=== PATIENT | female | born 1930 | race Caucasian/White ===

== ENCOUNTER 2016-08-25 09:29 | Day surgery (SDC) | payer MEDICARE, OTHER ==
[2016-08-25] VITALS (7 sets, daily range): BP systolic 158–185; BP diastolic 78–98; PULSE 76–87; RESP 16–20; O2SAT 95–98
[~2016-08-25] VITALS: Ht 167.6 cm; Wt 61.7 kg
[~2016-08-25 09:29] MED LIST: ASPI325T32 PO; BUPR300T52 PO; Bupivacaine Liposome 1.3% 20 mL Inj INFILTRATE ONE; CeFAZolin Inj 2 GM in IV Premix 1 EACH IV ONE; GABA-502 PO; LOSA100T29 PO; Lactated Ringer's 1,000 ML IV ONE; OMEP20TA86 PO; PANT500T PO; VIT1TABL83 PO; Vancomycin Inj 1,000 MG in IV Premix 1 EACH IV ONE; calcium; magnesium; vitamin d3
[2016-08-25] MEDS ORDERED: Ondansetron 2 mg/mL 2 mL Inj ONE (09:30)
[2016-08-25] MEDS ORDERED: fentaNYL-PF 50 mCg/mL 2 mL Inj ONE (09:30)
[2016-08-25] MEDS ORDERED: Dexamethasone 4 mg/mL Inj ONE (09:30)
[2016-08-25] MEDS ORDERED: Propofol 10,000 mCg/mL 20 mL Inj ONE (09:30)
--- NOTE | 2016-08-25 11:04 | PCM.HPANE ---
Patient Data Surgeon Admitting Provider: Attending Provider:Michael Evans MD Primary Care Physician:Antonio Sears Other Provider:Neelam Nuñez Anesthesia Reason for Visit Left Knee Arthritis Ht/WT & BMI Height (Feet): 5 Height (Inches): 6 Weight (Kilograms): 61.7 Body Mass Index 21.00 Allergies Coded Allergies: amlodipine (Verified Allergy, Intermediate, HEADACHE, 11/07/13) Sulfa (Sulfonamide Antibiotics) (Verified Allergy, Unknown, 11/07/13) monosodium glutamate (Verified Allergy, Unknown, 11/07/13) olanzapine (Verified Allergy, Unknown, UNKNOWN, 11/07/13) sulfite (Verified Allergy, Unknown, 11/07/13) morphine (Verified Adverse Reaction, Intermediate, N/V, 04/29/12) Uncoded Allergies: LIDOCAINE PATCH (Allergy, Intermediate, nausea, 11/07/13) Past Anesthesia History Anesthesia History: Denies:: Abnormal Airway, Anesthesia Reactions, Difficult Intubation, Fam Anesthesia Reaction, Fam Malignant Hypertherm, Malignant Hyperthermia Diabetes History Hx Diabetes?: No MRSA MRSA: No Medications Blood Thinner: Aspirin Hypertension Medication: Yes Home Meds Incl Beta Gil: No Reported Medications [vitamin d3] No Conflict CheckUnknown Dose DAILY 08/21/16 Vit B Comp/C/FA/Iron/Vit E (Vitamin B Complex Tablet)1 Each Tablet1 Each PO DAILY 08/21/16 Pantothenic Acid 500 Mg Swwaoy129 Mg PO DAILY 08/21/16 Omeprazole 20 Mg Tablet.dr20 Mg PO DAILY 08/21/16 [magnesium] No Conflict Ewmac574-309 Mg DAILY 08/21/16 Losartan Potassium 100 Mg Kdqylm456 Mg PO DAILY 08/21/16 Gabapentin 300 Mg Rlukqdo479 Mg PO DAILY Ref 0 08/21/16 [calcium] No Conflict CheckUnknown Dose DAILY 08/21/16 Bupropion ER 300 Mg Tab.er.03c755 Mg PO DAILY Ref 0 08/21/16 Aspirin 325 Mg Acdfnp387 Mg PO DAILY #1 BOTTLE 08/21/16 Discontinued Reported Medications Metronidazole 500 Mg Eavxhq533 Mg PO TID 10 Days Ref 0 11/07/13 [besivance o.6%] No Conflict Check1 Drop OD TID 11/07/13 Prednisolone Acetate 5 Ml Drops.susp5 Ml OP 11/07/13 Ketorolac Tromethamine 5 Ml Drops5 Ml OP 11/07/13 Acyclovir 800 Mg Afl575 Mg PO TID 30 Days Ref 0 11/07/13 Omeprazole Magnesium (Omeprazole)20 Mg Capsule.dr20 Mg PO DAILY 30 Days Ref 0 11/07/13 Losartan Potassium 100 Mg Pwelvl435 Mg PO DAILY 11/07/13 History HEENT History: Positive for:: Dysphagia (history of egd for food impaction. ) Denies:: Abnormal Airway Cataracts Difficult Intubation Hearing Problem Hx of Heart Problems?: Yes Cardiovascular History: Positive for:: Chest Pain Hypertension Peripheral Vascular (hx of raynauds) Denies:: AICD Atrial Fibrillation Congestive Heart Failure Pacemaker Valvular Heart Disease Hx of Respiratory Problem?: Yes Respiratory History: Positive for:: Dyspnea (with exertion) Pneumonia (states has had pneumonia "at least three times". ) Denies:: Asthma COPD Cough Hemoptysis Oxygen Administration Tuberculosis Use of C-PAP Machine Use of Inhalers / NEBS Hx Neurologic Problems?: No Neurological History: Denies:: CVA Dementia Multiple Sclerosis Parkinson's Disease Seizures Hx of GI Problems?: Yes Gastrointestinal History: Positive for:: Gastroesphageal Reflux Hiatal Hernia Denies:: Cirrhosis Diverticulitis Rectal Bleeding Hx of Problems?: Yes Genitourinary History: Denies:: HX of Hemodialysis (ckd stage III) Kidney Stones Urinary Tract Infection Female Hx: Denies:: Currently Problems with Breasts? Skin History: Denies:: History Skin Disorders? Pressure Ulcers Hx Musculoskeletal Problems?: Yes Musculoskeletal History: Positive for:: Back Injury (Hx) Joint Replacement (1 right hip; two on left hip. ) Musculoskeletal Trauma (left knee current admission problem) Osteoarthritis Hx of Psycho/Social Problems?: No Psycho Social History: Denies:: Anxiety Hx Depression Hx Surgeries?: Yes (Joint replacements, hysterectomy) Hx Any Other Health Problems?: Yes Other History: Denies:: Cancer Endocrine Disease Thyroid Disease History Blood Transfusions: Positive for:: Blood Transfusions Denies:: Blood Transfuse Reaction Hx Diabetes: No Hx Alcohol Use: Yes (3 times a week. )Hx Substance Use: NoHave You Smoked inLast 12 mo: No (Quit 40 years ago) Stop/Bang S-Snoring: Do You Snore Loudly: No T-Tired: feel tired, fatigued: Yes O-Obsered: Observed not breath: No P-Blood Pressure: treated: Yes B- Body Mass Index > 35 kg/m2: No A- Age over 50: Yes N- Neck Large Circumference: No G- Gender Male: No SARA Total Score: 3 SARA Risk Assessment: Low Risk, <3 Yes Risk Assessment Category Category 1A: Patient has history of documented sleep apnea, and HAS NOT received any narcotic, sedative or anesthesia administration during this stay. Category 1B: Patient has history of documented sleep apnea, and HAS received any narcotic , sedative or anesthesia administration during this stay Category 2: Patient has SUSPECTED Obstructive Sleep Apnea, and HAS received any narcotic , sedative or anesthesia administration during this stay. Category 3: Patient has SUSPECTED Obstructive Sleep Apnea and HAS NOT received narcotic, sedative or anesthesia administration during this stay. Category 4: Outpatient in Procedural Areas with known sleep apnea or who screen positive for High Risk via the STOP/BANG questionnaire. Exam Exam Vital Signs Vital Signs Date Time Temp Pulse Resp B/P Pulse Ox O2 Delivery O2 Flow Rate FiO2 08/25/16 10:00 35.6 76 16 174/98 98 Room Air General Appearance: Alert HEENT/AIRWAY: MP 1 Lungs: Clear to Auscultation Heart: Exam Unremarkable Meds/Labs/Diagnostics Admission Meds Current Medications Lactated Ringer's 1,000 ml @ 120 mls/hr Q8H20M ONCE IV Last administered on 09:47; Start 08/25/16 at 05:00; Stop 08/25/16 at 13:19 Vancomycin/0.9 % Sod Chloride/ Premix (Vancomycin Inj/ IV Premix) 200 ml @ 133.333 mls/hr PREOP ONCE IV Last administered on 08/25/16 10:29; Start 08/25 at 06:00; Stop 08/25/16 at 07:29; Status DC Plan Impression Patient chart reviewed, patient interviewed and anesthestic plan with risks, benefits, and alternatives discussed, and informed consent obtained. NPO Status: 1830 08/24/16 ASA Physical Status: ASA1 Normal Healthy Anesthetic Plan: GA Bene/Risks/Altern/Consents: Yes HP Complete Prior to Induction: Yes Other discussed ga vs SAB. Patient concerned about cognitive dysfuntion, but also does not want spinal. Decided GA with LMA best option. Jared Moore MD Aug 25, 2016 11:04
[2016-08-25] MEDS ORDERED: Tranexamic Acid 100 mg/mL 10 mL Inj ONE (11:27)
[2016-08-25] MEDS ORDERED: Bupivacaine Liposome 1.3% 20 mL Inj ONE (11:27)
[2016-08-25] MEDS ORDERED: 0.9% Sodium Chloride 100 ML ONE (11:27)
[2016-08-25] MEDS ORDERED: Lactated Ringer's 500 ML IV PRN (11:52)
[2016-08-25] MEDS ORDERED: Lactated Ringer's 1,000 ML IV SCH (11:52)
[2016-08-25] MEDS ORDERED: fentaNYL-PF 50 mCg/mL 2 mL Inj IVPUSH PRN (11:55)
[2016-08-25] MEDS ORDERED: Ondansetron 2 mg/mL 2 mL Inj IVPUSH PRN (11:55)
[2016-08-25] MEDS ORDERED: Atropine 0.4 mg/mL Inj IVPUSH PRN (11:55)
[2016-08-25] MEDS ORDERED: EPHEDrine Sulfate 50 mg/mL Inj IVPUSH PRN (11:55)
[2016-08-25] MEDS ORDERED: HYDROmorphone 1 mg/mL Inj IVPUSH PRN (11:55)
[2016-08-25] MEDS ORDERED: Labetalol 5 mg/mL 4 mL Inj IV PRN (11:55)
[2016-08-25] MEDS ORDERED: Phenylephrine 10,000 mCg/mL Inj IVPUSH PRN (11:55)
[2016-08-25] MEDS ORDERED: Dexamethasone 4 mg/mL Inj IVPUSH PRN (11:55)
[2016-08-25] MEDS ORDERED: MetoCLOpramide 5 mg/mL 2 mL Inj IVPUSH PRN (11:55)
[2016-08-25] MEDS ORDERED: hydrALAZINE 20 mg/mL Inj IVPUSH PRN (11:55)
[2016-08-25] MEDS ORDERED: Bupivacaine-MPF 0.25%/EPI 30 mL Inj INJ ONE (12:07)
[2016-08-25] MEDS ORDERED: Gentamicin 40 mg/mL 2 mL Inj IRRIGATION ONE (12:07)
[2016-08-25] MEDS ORDERED: Bupivacaine Liposome 1.3% 20 mL Inj INFILTRATE ONE (12:07)
--- NOTE | 2016-08-25 13:08 | PCM.ANEP1 ---
Post Anesthesia Phase 1 PACU Phase 1 Assessment Vital Signs Vital Signs Date Time Temp Pulse Resp B/P Pulse Ox O2 Delivery O2 Flow Rate FiO2 08/25/16 10:00 35.6 76 16 174/98 98 Room Air Anesthetic Administered: GA Level of Alertness: Awake, talking LARSON's with Equal Strength: No Pain: No Oxygen Delivery: Room Air Lungs: Clear to Auscultation Dermatome Level: Full Sensation Summary 159/86 p90 sat 95% RR12 T37.1 AWAKE NO COMPLICATIONS Jared Moore MD Aug 25, 2016 13:08
--- NOTE | 2016-08-25 13:43 | DRSVH ---
PROCEDURE: X-RAY LEFT KNEE, ONE OR TWO VIEWS ([id number]) INDICATIONS: POST OP UNI KNEE LEFT TECHNIQUE: 2 view(s) of the knee acquired. COMPARISON: None. FINDINGS: Bones: Patient is status post lateral compartment knee joint arthroplasty. Hardware components are in expected positions. Visualized bony structures are intact. Soft tissues: Overlying postoperative changes are noted. IMPRESSION: Expected appearance following lateral compartment arthroplasty. Dictated by: Juan Jama M.D. on 08/25/2016 at 13:41 Approved by: Juan Jama M.D. on 08/25/2016 at 13:41
--- NOTE | 2016-08-25 13:53 | PCM.ANEP2 ---
Post Anesthesia Evaluation ASA/CMS Post Anesthesia VS in Patient's Normal Range?: Yes Resp Stable; Airway Patent?: Yes CV Function & Hydration Stable: Yes Mental Status Recovered?: Yes Pain control Satisfactory?: Yes N/V Control Satisfactory?: Yes Additional Comments patient very awake in PACU, no complications Jared Moore MD Aug 25, 2016 13:53
--- NOTE | 2016-08-26 00:51 | OP ---
[address] [address] OPERATIVE REPORT PATIENT: LIBORIO LOYOLA : 1930 MR#: [id number] ADMIT: 08/25/2016 JOB ID: [id number] DATE OF SURGERY: 08/25/2016 PREOPERATIVE DIAGNOSIS(ES): Advanced lateral compartment osteoarthritis with disabling pain and instability in her left knee. POSTOPERATIVE DIAGNOSIS(ES): Advanced lateral compartment osteoarthritis with disabling pain and instability in her left knee. PROCEDURE: Lateral compartment unicompartmental knee arthroplasty. SURGEON: Michael Evans MD DICE SPOTTER: Elidia Reagan PA-C COMPLICATIONS: None. INDICATIONS: This woman has had progressive disability of her left knee as she had incurred a tibial plateau fracture several years ago. It has developed advanced lateral compartment osteoarthritis with a valgus alignment, making her very unstable with ambulation. She elects to proceed with the unicompartmental knee arthroplasty. She understands and accepts the potential for risks and complications, which include but is not limited to, infection, thromboembolic, neurovascular events, as well as the potential for progressive arthritis in unresurfaced compartments and implant failure. DESCRIPTION OF PROCEDURE: The patient was prepped and draped in usual sterile fashion. An anterolateral approach was made. Dissection was carried down. Patellar osteophyte was removed. The extramedullary instrumentation was utilized, placed in place with pinning on the femoral side and a distal femoral cut was made. The bone fragments were removed. The tibial depth was then assessed. A tibial guide was pinned in appropriate position and transverse and sagittal cuts were made. The guide was removed. The tibial bone fragment was removed. All meniscal tissue and osteophytes were removed from the knee. The femur was sized to a B chamfer cutting block, fixed in appropriate position. Rotation, drill holes and chamfer cuts were made. The tibia sized to a 3 provisionally fixed. Trial reduction was performed and a 9 mm polyethylene was obtained. The provisional was fixed and drill holes were made for this. The knee was lavaged with a large quantity of sterile irrigant, following pressurized lavage, followed with pressurized cementation of the components. Excess cement was removed during the curing process. Final construct was assembled. The polyethylene snapped securely into place. The deep Hemovac drain was left. Tourniquet was let down. Deep closure with #2 Quill deep, followed by 2-0 Vicryl, 3-0, and a 4-0 intracuticular stitch. Steri-Strips were applied. The patient was taken to the recovery room in stable condition. Standard postoperative plan recommended.
== END 2016-08-25 23:59 | disposition home or self-care (01) ==
LOC: SAS 09:29
PROVIDERS: ATTEND Orthopaedic Surgery
DX: M17.12 Unilateral primary osteoarthritis, left knee (principal); I10 Essential (primary) hypertension; I73.00 Raynaud's syndrome without gangrene; K21.9 Gastro-esophageal reflux disease without esophagitis; M54.9 Dorsalgia, unspecified; Z85.828 Personal history of other malignant neoplasm of skin; Z79.82 Long term (current) use of aspirin; Z87.891 Personal history of nicotine dependence
CPT/HCPCS: 27446; 73560; C1713; C1776; J0690; J1100; J1580; J1885; J2405; J3010; J3370; J7120

== ENCOUNTER → 2017-01-16 | Day surgery (SDC) | payer MEDICARE, OTHER ==
[~2017-01-16] VITALS: Ht 167.6 cm; Wt 62.7 kg
[~2017-01-16] MED LIST changes: -Bupivacaine Liposome 1.3% 20 mL Inj INFILTRATE ONE; +Bupivacaine-MPF 0.5% 30 mL Inj INFILTRATE ONE; +CeFAZolin 2 Gm/50 mL D5W Duplex Bag IV ONE; +CeFAZolin 2 Gm/50 mL D5W IV Premix IV ONE; -CeFAZolin Inj 2 GM in IV Premix 1 EACH IV ONE; +Dexamethasone 4 mg/mL Inj IVPUSH PRN; +Dexamethasone 4 mg/mL Inj ONE; +EPHEDrine Sulfate 50 mg/mL Inj IVPUSH PRN; +Ketamine 10 mg/mL 20 mL Inj ONE; -Lactated Ringer's 1,000 ML IV ONE; +Lactated Ringer's 1,000 ML IV SCH; +Lactated Ringer's 500 ML IV PRN; +MetoCLOpramide 5 mg/mL 2 mL Inj IVPUSH PRN; +Ondansetron 2 mg/mL 2 mL Inj IVPUSH PRN; +Ondansetron 2 mg/mL 2 mL Inj ONE; +Phenylephrine 10,000 mCg/mL Inj IVPUSH PRN; +Propofol 10 mg/mL 20 mL Inj ONE; +VIT C PO; -Vancomycin Inj 1,000 MG in IV Premix 1 EACH IV ONE; +fentaNYL-PF 50 mCg/mL 2 mL Inj IVPUSH PRN; +fentaNYL-PF 50 mCg/mL 2 mL Inj ONE; +oxyCODONE-Acetamin 5-325 mg Tablet PO PRN
[2017-01-16] MEDS: Lactated Ringer's 1,000 ML IV SCH ×2 (08:55→10:35)
[2017-01-16 09:09] VITALS: BP 142/79; PULSE 75; RESP 16; O2SAT 97
--- NOTE | 2017-01-16 09:52 | PCM.HPANE ---
Patient Data Date of Service: Jan 16, 2017 Surgeon Admitting Provider: Attending Provider:Darwin Nichols MD Primary Care Physician:Cheyenne Harris Other Provider:Neelam Nuñez Anesthesia Reason for Visit Left Ring Finger & Little Finger Fractures Ht/WT & BMI Height (Feet): 5 Height (Inches): 6 Weight (Kilograms): 62.7 Body Mass Index 22.00 Allergies Coded Allergies: amlodipine (Verified Allergy, Intermediate, HEADACHE, 01/14/17) Sulfa (Sulfonamide Antibiotics) (Verified Allergy, Unknown, 01/14/17) monosodium glutamate (Verified Allergy, Unknown, 01/14/17) olanzapine (Verified Allergy, Unknown, UNKNOWN, 11/07/13) sulfite (Verified Allergy, Unknown, 11/07/13) morphine (Verified Adverse Reaction, Intermediate, N/V, 04/29/12) Uncoded Allergies: LIDOCAINE PATCH (Allergy, Intermediate, nausea, 11/07/13) Past Anesthesia History Anesthesia History: Denies:: Abnormal Airway, Anesthesia Reactions, Difficult Intubation, Fam Anesthesia Reaction, Fam Malignant Hypertherm, Malignant Hyperthermia Diabetes History Hx Diabetes?: No MRSA MRSA: No Medications Blood Thinner: Aspirin Hypertension Medication: Yes Home Meds Incl Beta Gil: No Reported Medications [Vit C] No Conflict Check1 Tablet PO DAILY 01/16/17 [vitamin d3] No Conflict CheckUnknown Dose DAILY 08/21/16 Vit B Comp/C/FA/Iron/Vit E (Vitamin B Complex Tablet)1 Each Tablet1 Each PO DAILY 08/21/16 Pantothenic Acid 500 Mg Cmksvi471 Mg PO DAILY 08/21/16 Omeprazole 20 Mg Tablet.dr20 Mg PO DAILY 08/21/16 [magnesium] No Conflict Ljxvt218-778 Mg DAILY 08/21/16 Losartan Potassium 100 Mg Uhlzpf980 Mg PO DAILY 08/21/16 Gabapentin 300 Mg Tcgikxr418 Mg PO DAILY Ref 0 08/21/16 [calcium] No Conflict CheckUnknown Dose DAILY 08/21/16 Bupropion ER 300 Mg Tab.er.72d920 Mg PO DAILY Ref 0 08/21/16 Aspirin 325 Mg Lerfta907 Mg PO DAILY #1 BOTTLE 08/21/16 History History of ENT Problems?: No HEENT History: Positive for:: Dysphagia (history of egd for food impaction. ) Denies:: Abnormal Airway Cataracts Difficult Intubation Hearing Problem Denture Type: None Teeth Condition: Within Normal Limits Hx of Heart Problems?: Yes Cardiovascular History: Positive for:: Chest Pain Hypertension Denies:: AICD Atrial Fibrillation Congestive Heart Failure Pacemaker Valvular Heart Disease Hx of Respiratory Problem?: Yes Respiratory History: Positive for:: Dyspnea (with exertion) Pneumonia (states has had pneumonia "at least three times". ) Denies:: Asthma COPD Cough Hemoptysis Oxygen Administration Tuberculosis Use of C-PAP Machine Hx Neurologic Problems?: No Neurological History: Denies:: CVA Dementia Multiple Sclerosis Parkinson's Disease Seizures Hx of GI Problems?: Yes Hx of Problems?: Yes Genitourinary History: Denies:: HX of Hemodialysis (ckd stage III) Kidney Stones Urinary Tract Infection Female Hx: Denies:: Currently Problems with Breasts? Skin History: Positive for:: History Skin Disorders? (recent hx of open bcc removals facial, leg) Denies:: Pressure Ulcers Hx Musculoskeletal Problems?: Yes Musculoskeletal History: Positive for:: Back Injury (Hx) Joint Replacement (1 right hip; two on left hip. left total knee 08/2016) Musculoskeletal Trauma (left hand current admission problem) Osteoarthritis Hx of Psycho/Social Problems?: No Psycho Social History: Denies:: Anxiety Hx Depression Hx Surgeries?: Yes (Joint replacements, hysterectomy) Hx Any Other Health Problems?: Yes Other History: Denies:: Cancer Endocrine Disease Thyroid Disease History Blood Transfusions: Positive for:: Blood Transfusions Denies:: Blood Transfuse Reaction Hx Diabetes: No Hx Alcohol Use: Yes (3 times a week. )Hx Substance Use: No Smoking Status: Former Smoker Have You Smoked inLast 12 mo: No (Quit 40 years ago) Stop/Bang S-Snoring: Do You Snore Loudly: No T-Tired: feel tired, fatigued: Yes O-Obsered: Observed not breath: No P-Blood Pressure: treated: Yes B- Body Mass Index > 35 kg/m2: No A- Age over 50: Yes N- Neck Large Circumference: No G- Gender Male: No SARA Total Score: 3 SARA Risk Assessment: Low Risk, <3 Yes Risk Assessment Category Category 1A: Patient has history of documented sleep apnea, and HAS NOT received any narcotic, sedative or anesthesia administration during this stay. Category 1B: Patient has history of documented sleep apnea, and HAS received any narcotic , sedative or anesthesia administration during this stay Category 2: Patient has SUSPECTED Obstructive Sleep Apnea, and HAS received any narcotic , sedative or anesthesia administration during this stay. Category 3: Patient has SUSPECTED Obstructive Sleep Apnea and HAS NOT received narcotic, sedative or anesthesia administration during this stay. Category 4: Outpatient in Procedural Areas with known sleep apnea or who screen positive for High Risk via the STOP/BANG questionnaire. Exam Exam Vital Signs Vital Signs Date Time Temp Pulse Resp B/P Pulse Ox O2 Delivery O2 Flow Rate FiO2 01/16/17 09:09 36.6 75 16 142/79 97 Room Air General Appearance: Alert, Oriented X3, Cooperative, No Acute Distress HEENT/AIRWAY: MP 2 Lungs: Clear to Auscultation, Normal Air Movement Heart: Exam Unremarkable, Regular Rate/Rhythm, No Murmurs/Rubs/Gallops Meds/Labs/Diagnostics Admission Meds Current Medications Lactated Ringer's (Lr) 1,000 ml @ 120 mls/hr Q8H20M IV Last administered on t 08:55; Start 01/16/17 at 05:00; Stop 01/16/17 at 13:19 Plan Impression Patient chart reviewed, patient interviewed and anesthestic plan with risks, benefits, and alternatives discussed, and informed consent obtained. NPO per Anesth. Guidelines: Yes ASA Physical Status: ASA3 Severe Disease Anesthetic Plan: GA Bene/Risks/Altern/Consents: Yes HP Complete Prior to Induction: Yes Other <4 METs, likely due to combined deconditioning, orthopedic c/o Parmjit Hager DO Jan 16, 2017 09:52
[2017-01-16 12:37] VITALS: BP 122/78; PULSE 68; RESP 16; O2SAT 97
[2017-01-16 13:13] VITALS: BP 155/80; PULSE 61; RESP 16; O2SAT 97
--- NOTE | 2017-01-16 13:39 | PCM.ANEP1 ---
Post Anesthesia PACU Phase 1 Assessment Date of Service: Jan 16, 2017 Vital Signs Vital Signs Date Time Temp Pulse Resp B/P Pulse Ox O2 Delivery O2 Flow Rate FiO2 01/16/17 13:13 36.0 61 16 155/80 97 Room Air 01/16/17 12:37 36.0 68 16 122/78 97 Room Air 01/16/17 09:09 36.6 75 16 142/79 97 Room Air Anesthetic Administered: MAC Level of Alertness: Awake, talking LARSON's with Equal Strength: Yes Pain: No Nausea or Vomiting: No CV Function & Hydration Stable: Yes Airway Device: Oxygen Delivery: Room Air Lungs: Clear to Auscultation, Normal Air Movement Dermatome Level: Full Sensation PACU Phase 2 Assessment Complications: No Patient Instructions Provided: N/A Parmjit Hager DO Jan 16, 2017 13:39
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
== END | disposition home or self-care (01) ==
LOC: SAS 08:43
PROVIDERS: ATTEND Orthopaedic Surgery
DX: S62.615A Displaced fracture of proximal phalanx of left ring finger, initial encounter for closed fracture (principal); S62.617A Displaced fracture of proximal phalanx of left little finger, initial encounter for closed fracture; M81.0 Age-related osteoporosis without current pathological fracture; I10 Essential (primary) hypertension; Z79.82 Long term (current) use of aspirin
CPT/HCPCS: 26727; J0690; J1100; J2250; J2405; J2704; J3010; J7120